=== PATIENT | male | born 1990 | race Caucasian/White ===

== ENCOUNTER → 2020-01-16 10:29 | Outpatient (CLI) | payer OTHER, SELFPAY ==
--- NOTE | 2020-01-16 | DI.RAD.S_ITS ---
PROCEDURE: XR NASAL BONES MIN 3V INDICATIONS: Unspecified injury of face, initial encounter TECHNIQUE: 3 views of the nasal bones acquired. COMPARISON: None. FINDINGS: Bones: No fractures or dislocations. Nasal septum is midline. Normal nasociliary nerve grooves are noted. Soft tissues: No suspicious soft tissue calcifications. IMPRESSION: No trauma found. Dictated by: Pritesh Arroyo M.D. on 01/16/2020 at 12:23 Approved by: Pritesh Arroyo M.D. on 01/16/2020 at 12:24
== END ==
PROVIDERS: PCP Family Medicine; Referring Provider Family Medicine; Visit Provider Family Medicine
DX: S09.93XA Unspecified injury of face, initial encounter (principal); S01.21XA Laceration without foreign body of nose, initial encounter; Y99.0 Civilian activity done for income or pay
CPT/HCPCS: 70160

== ENCOUNTER → 2020-01-18 09:57 | Outpatient (CLI) | payer OTHER, SELFPAY ==
--- NOTE | 2020-01-18 10:05 | DI.CT.S_ITS ---
PROCEDURE: CT FACIAL BONES WO CON INDICATIONS: Laceration without foreign body of nose, initial e TECHNIQUE: Noncontrast 2.5 mm thick axial images acquired from the mandible through the frontal sinuses, with coronal and sagittal reformatting. For radiation dose reduction, the following was used: automated exposure control, adjustment of mA and/or kV according to patient size. COMPARISON: [facility], [place], XR NASAL BONES MIN 3V, 01/16/2020, 9:36. FINDINGS: Image quality: Excellent. Bones and teeth: Comminuted, moderately displaced right nasal bone fractures are seen. Mild displacement of left nasal bone fractures can be seen. No ileana fracture of the nasal septum is seen. Minimal chronic leftward nasal septal deviation can be seen. There is a mildly displaced fracture seen involving the anterior wall of the maxillary sinus. A minimally displaced, comminuted fracture is also seen involving the medial wall of the right maxillary sinus inferiorly. Orbital thurman are intact. Visualized portions of the mandible demonstrate no fractures or subluxation. Zygomatic arches are intact. Pterygoid plates are intact. Visualized portions of the skull base and auditory canals are intact. Sinuses: Moderate mucosal thickening is seen within the right maxillary sinus inferiorly and medially. The paranasal sinuses otherwise appear clear. Mastoid air cells are aerated. Soft tissues: Soft tissue swelling of the nose and right cheek can be seen. Vascular: Visualized vascular structures appear normal in the absence of contrast. Bony vascular foramina and canals are intact. IMPRESSION: Comminuted nasal bone fractures are seen, which are more displaced on the right than on the left. Mildly displaced fractures are seen involving the anterior and medial aspects of the right maxillary sinus. Dictated by: Benigno Barber M.D. on 01/18/2020 at 9:49 Approved by: Benigno Barber M.D. on 01/18/2020 at 9:55
== END ==
PROVIDERS: PCP Family Medicine; Referring Provider Otolaryngology; Visit Provider Otolaryngology
DX: S02.2XXA Fracture of nasal bones, initial encounter for closed fracture (principal); S01.21XA Laceration without foreign body of nose, initial encounter
CPT/HCPCS: 70486

== ENCOUNTER 2020-01-24 09:38 | Day surgery (SDC) | payer OTHER, SELFPAY ==
[2020-01-24 10:53] VITALS: BP 122/76; PULSE 55; RESP 16; TEMP 36.6; O2SAT 100; BMI 21.4
[2020-01-24] MEDS: ACETAMINOPHEN 325 MG TABLET 975 MG PO (11:18)
[2020-01-24] MEDS: LACTATED RINGERS 1,000 ML 42 ML IV (11:26)
[2020-01-24] MEDS: OXYMETAZOLINE NASAL SPRAY 15 ML 2 SPRAYS NASAL ×2 (11:26→12:00)
--- NOTE | 2020-01-24 11:39 | PM.PREOP ---
Pre-operative Note COVID-19 COVID-19 status: Result pending Interval Note History & Physical reviewed/Exam performed by Physician: Yes Changes to H&P: No
--- NOTE | 2020-01-24 11:39 | PM.OP.1 ---
Operative Date/Time/Diagnoses Date of procedure: 01/24/20 Time of procedure: 12:02 Pre-op diagnosis: Open fracture nasal bone, maxillary fracture Post-op diagnosis: same Procedure & Clinicians Procedure: Closed reduction nasal fracture Same procedure as scheduled: Yes Indications: 29-year-old male suffered primarily right open nasal fracture 01/15/2020, with displacement and external nasal deformity, nondisplaced maxillary fracture. Following discussion of the material risks benefits complications and alternatives, he elected to proceed with closed reduction of the nasal fracture. Surgeon: Arsen Davis Click Yes if Unassisted: Yes Anesthesia Type: General and Local Operative Notes Findings: Comminuted and elevated right nasal bone, reduced. Residual soft tissue swelling/resolving hematoma RIGHT nasal sidewall. Closure Type: not applicable Specimen(s): none sent Estimated Blood Loss (mL): 5 Procedure in detail: Following identification and confirmation of consent as well as preoperative Afrin nasal spray, he was brought to the operating room suite and placed in the supine position. Total IV anesthesia was administered. Cotton with 4% lidocaine and Afrin was packed tightly into the nasal bones for a full minute. Upon removal external nasal pressure was applied on the right side for reduction, with the Boies elevator intranasally for support. External profile was improved, although soft tissue swelling persisted. He tolerated this procedure well without known complication and was awakened in the operating room taken recovery room in stable condition. Complications: none Post-operative Condition: stable Disposition: same day surgery Plan for aftercare: DC home with mother. Nasal saline as needed, Afrin for any significant bleeding, Tylenol and Advil for pain control. Ice as tolerated for 24-48 hours.
--- NOTE | 2020-01-24 11:59 | SUR.OPER ---
Supine on padded OR bed, head on pillow, arms secured on padded arm boards at <90 degrees abduction, legs uncrossed, safety belt at thigh, tape over blanket over lower legs.
[2020-01-24] MEDS: LIDOCAINE 4% SOLN 50 ML 20 ML TOP (12:00)
[2020-01-24 12:06] VITALS: BP 119/73; PULSE 78; RESP 14; TEMP 36.4; O2SAT 95
[2020-01-24 12:10] VITALS: BP 123/78; PULSE 61; RESP 14; O2SAT 97
[2020-01-24 12:15] VITALS: BP 115/77; PULSE 59; RESP 14; O2SAT 99
[2020-01-24 12:20] VITALS: BP 111/73; PULSE 54; RESP 14; O2SAT 99
[2020-01-24 12:25] VITALS: BP 114/81; PULSE 20; RESP 18; TEMP 36; O2SAT 99
== END 2020-01-24 12:45 | disposition home or self-care (01) ==
PROVIDERS: PCP Family Medicine; Referring Provider Otolaryngology; Visit Provider Otolaryngology
PROC: 0NSBXZZ Reposition Nasal Bone, External Approach (ICD-10-PCS; CPT 21315; principal; 2020-01-24 11:15)
DX: S02.2XXB Fracture of nasal bones, initial encounter for open fracture (principal); S00.33XA Contusion of nose, initial encounter; W26.8XXA Contact with other sharp object(s), not elsewhere classified, initial encounter; F17.210 Nicotine dependence, cigarettes, uncomplicated
CPT/HCPCS: 21315; A9270; J2250; J2704